=== PATIENT | female | born 1965 | race African-American/Black ===

== ENCOUNTER 2018-11-12 06:04 | Inpatient (IN) | payer BC ==
[2018-11-11 09:36] VITALS: BMI 24.6
[2018-11-12] VITALS (27 sets, daily range): BP systolic 119–140; BP diastolic 54–81; PULSE 64–89; RESP 11–20; Ht 162.6 cm; Wt 63.8 kg
[~2018-11-12] VITALS: Ht 162.6 cm; Wt 63.8 kg
[~2018-11-12 06:04] MED LIST: AMLO2.5T2 PO
[2018-11-12] MEDS ORDERED: DESFLURANE 15 MIN ONE (07:00)
[2018-11-12] MEDS ORDERED: CEFAZOLIN 2 GM/50 ML (PMX) 50 ML IVPB ONE (07:00)
[2018-11-12] MEDS ORDERED: NEOSTIGMINE 10 MG INJ ONE (07:00)
--- NOTE | 2018-11-12 07:17 | HPN ---
Date/Time of Note Date/Time of Note DATE: 11/12/18 TIME: 07:17 Interval H&P Admission Note Pt. seen H&P reviewed: No system changes RAY BALTAZAR MD Nov 12, 2018 07:17
--- NOTE | 2018-11-12 07:39 | PREAC ---
Date/Time of Note Date/Time of Note DATE: 11/12/18 TIME: 07:37 Anesthesia Eval and Record Evaluation Time Pre-Procedure Interview DATE: 11/12/18 TIME: 07:37 Age 53 Sex female NPO: 8 hrs Preoperative diagnosis uterine fibroids Planned procedure abdominal suracervical hysterectomy Past Medical History Past Medical History: Includes Cardio: HTN, CAD (angina) Psych: Depression, Anxiety Surgery & Anesthesia Issues No known issue Meds Anticoagulation: No Beta Alida within 24 hr: No Reason Beta Alida not given: Pt. not on B-Alida Reported Medications Amlodipine Besylate* (Norvasc*) 2.5 Mg Tablet, 2.5 MG PO DAILY 09/14/14 Current Medications Lactated Ringer's 1,000 ml @ 125 mls/hr Q8H IV* ; Start 11/12/18 at 07:00 Meds reviewed: Yes Allergies Coded Allergies: guaifenesin (Verified Allergy, Intermediate, FACIAL SWELLING, 11/12/18) doxycycline (Verified Allergy, Mild, RASH, 11/12/18) Allergies Reviewed: Yes Labs/Studies Labs Reviewed: Reviewed by anesthesiologist Blood Bank Test 11/12/18 06:02 Blood Product Summary Counts Blood Type B POSITIVE test: Negative Studies: ECG (nl), CXR (nl) Pre-procedure Exam Last vitals Vital Signs Date Temp Pulse Resp B/P (MAP) Pulse Ox O2 O2 Flow FiO2 Time Delivery Rate 11/12/18 98.8 76 18 137/78 100 Room Air 06:39 (97) Airway: Adequate mouth opening, Adequate thyromental dist Mallampati: Mallampati II Teeth: Normal Lung: Normal Heart: Normal ASA Physical Status ASA physical status: 3 Emergency: None Planned Anesthetic General/MAC: ETT Neuraxial: Spinal Planned Pain Management Sub-arachniod narcotics, Parenteral pain med Pre-operative Attestations Prior to commencing anesthesia and surgery, the patient was re-evaluated, there was verification of: *The patient's identity *The results of appropriate recent lab work and preoperative vital signs *The above evaluation not changing prior to induction *Anesthetic plan, risk benefits, alternative and complications discussed with patient/family; questions answered; patient/family understands, accepts and wishes to proceed. Davian Julian M.D. Nov 12, 2018 07:39
[2018-11-12] MEDS ORDERED: ROCURONIUM 50 MG INJ ONE (07:41)
[2018-11-12] MEDS ORDERED: GLYCOPYRROLATE 0.4 MG INJ ONE (07:41)
[2018-11-12] MEDS ORDERED: CEFAZOLIN 1 GM INJ ONE (07:41)
[2018-11-12] MEDS ORDERED: PROPOFOL 20 ML ONE (07:41)
[2018-11-12] MEDS ORDERED: FENTAnyl 50 MCG/ML VIAL ONE (07:43)
[2018-11-12] MEDS ORDERED: MIDAZOLAM 1 MG/ML 2 ML INJ ONE (07:43)
[2018-11-12] MEDS ORDERED: DEXAMETHASONE 4 MG/ML 5 ML INJ ONE (07:44)
[2018-11-12] MEDS ORDERED: ONDANSETRON 4 MG INJ ONE (07:44)
[2018-11-12] MEDS ORDERED: morphine SULFATE/PF (10 MG/10 ML) INJ ONE (07:49)
[2018-11-12] MEDS ORDERED: OXYCODONE/ACETAMINOPHEN (5/325) TAB PO PRN ×2 (08:30)
[2018-11-12] MEDS ORDERED: MIDAZOLAM 1 MG/ML 2 ML INJ IV PRN (08:30)
[2018-11-12] MEDS ORDERED: DIPHENHYDRAMINE 50 MG INJ IV PRN ×2 (08:30)
[2018-11-12] MEDS ORDERED: NALBUPHINE HCL (10 MG/1 ML) INJ IV PRN (08:30)
[2018-11-12] MEDS ORDERED: MEPERIDINE 25 MG INJ IV PRN (08:30)
[2018-11-12] MEDS ORDERED: ONDANSETRON 4 MG INJ IV PRN (08:30)
[2018-11-12] MEDS ORDERED: TRIMETHOBENZAMIDE 100 MG/ML VIAL IM PRN ×2 (08:30)
[2018-11-12] MEDS ORDERED: ZOLPIDEM 5 MG TAB PO PRN (08:30)
[2018-11-12] MEDS ORDERED: LABETALOL HCL 20MG INJ IV PRN (08:30)
[2018-11-12] MEDS ORDERED: hydrALAzine 20 MG INJ IV PRN (08:30)
[2018-11-12] MEDS ORDERED: EPHEDrine SULFATE 50 MG/5 ML SYG IV PRN (08:30)
[2018-11-12] MEDS ORDERED: IPRATROPIUM (NEB) 0.5 MG/2.5 ML AMP HHN PRN (08:30)
[2018-11-12] MEDS ORDERED: NALOXONE (0.4 MG/ML) INJ IV PRN (08:30)
[2018-11-12] MEDS ORDERED: HYDROmorphONE 1 MG/5 ML IV SYRINGE IV PRN ×3 (08:30)
[2018-11-12] MEDS ORDERED: morphine 2 MG INJ IV PRN (08:30)
[2018-11-12] MEDS ORDERED: ALBUTEROL 0.083% (NEB) 2.5 MG/3 ML AMP HHN PRN (08:30)
[2018-11-12] MEDS ORDERED: FENTAnyl 50 MCG/ML VIAL IV PRN ×3 (08:30)
--- NOTE | 2018-11-12 09:59 | SIPON ---
Date/Time of Note Date/Time of Note DATE: 11/12/18 TIME: 09:55 Operative Report Preoperative Diagnosis uterine leiomyomata hx of multiple myomectomy Postoperative Diagnosis same as above severe pelvic adhesion Operation/Procedure Performed lysis of adhesion subtotal hysterectomy bilateral salphingo oophorectomy Surgeon see signature line food and nutrition services assistant reiche Anesthesia: general, spinal Estimated blood loss: 100 - 150 ml's Transfusion Required none Specimen uterus both ovaries and tubes Grafts/Implants none Complications none RAY BALTAZAR MD Nov 12, 2018 09:59
--- NOTE | 2018-11-12 10:57 | PAC ---
Date/Time of Note Date/Time of Note DATE: 11/12/18 TIME: 10:57 Post-Anesthesia Notes Post-Anesthesia Note Last documented vital signs Vital Signs Date Temp Pulse Resp B/P (MAP) Pulse Ox O2 O2 Flow FiO2 Time Delivery Rate 11/12/18 72 14 127/63 97 Room Air 10:41 (84) 11/12/18 98.2 10:08 Activity: WNL Respiratory function: WNL Cardiovascular function: WNL Mental status: Baseline Pain reasonably controlled: Yes Hydration appropriate: Yes Nausea/Vomiting absent: Yes Davian Julian M.D. Nov 12, 2018 10:57
[2018-11-12] MEDS: LACTATED RINGER'S 1,000 ML IV* SCH ×2 (11:32→15:00)
[2018-11-12] MEDS: KETOROLAC 30 MG INJ IV PRN ×2 (11:36→20:47)
[2018-11-12] MEDS: ONDANSETRON 4 MG INJ IV PRN ×2 (12:32→20:47)
[2018-11-13 00:09] VITALS: BP 142/66; PULSE 75; RESP 18
[2018-11-13] MEDS: morphine 2 MG INJ IV PRN ×2 (00:23→07:33)
[2018-11-13] MEDS: LACTATED RINGER'S 1,000 ML IV* SCH ×4 (02:41→18:53)
[2018-11-13 04:35] VITALS: BP 123/70; PULSE 81; RESP 18
[2018-11-13 07:25] VITALS: BP 153/79; PULSE 74; RESP 18
[2018-11-13] MEDS: ONDANSETRON 4 MG INJ IV PRN (07:33)
[2018-11-13] MEDS ORDERED: ONDANSETRON 4 MG INJ IV PRN (08:30)
[2018-11-13] MEDS ORDERED: morphine 4 MG/ML VIAL IV PRN (08:30)
[2018-11-13] MEDS: IBUPROFEN 800 MG TAB PO SCH ×2 (14:07→22:00)
[2018-11-13 15:04] VITALS: BP 133/72; PULSE 77; RESP 17
[2018-11-13] MEDS ORDERED: HYDROCODONE/APAP (5/325) TAB PO PRN (15:30)
[2018-11-13] MEDS: HYDROCODONE/APAP (5/325) TAB PO PRN ×2 (15:50→19:42)
[2018-11-13 19:10] VITALS: BP 142/79; PULSE 74; RESP 20
--- NOTE | 2018-11-13 20:42 | QN ---
Documentation Comment no flatus not ambulating max temp 99.5 normotensive abdomen soft wound dry calf neg for tenderness A strable POD #1 P as ordered RAY BALTAZAR MD Nov 13, 2018 20:42
[2018-11-14] MEDS: HYDROCODONE/APAP (5/325) TAB PO PRN ×4 (00:52→19:09)
[2018-11-14 02:00] VITALS: BP 128/65; PULSE 61; RESP 20
[2018-11-14] MEDS: LACTATED RINGER'S 1,000 ML IV* SCH ×3 (03:41→22:05)
[2018-11-14] MEDS: IBUPROFEN 800 MG TAB PO SCH ×3 (06:12→22:04)
[2018-11-14 07:16] VITALS: BP 119/74; PULSE 64; RESP 18
[2018-11-14 14:00] VITALS: BP 140/81; PULSE 64; RESP 17
[2018-11-14 20:00] VITALS: BP 164/94; PULSE 66; RESP 20
--- NOTE | 2018-11-14 20:38 | QN ---
Documentation Comment no flatus yet pain is better controlled VSS afebrile abdomen soft wound dry CVA neg for tenderness calf neg for tenderness A stable post subtotal hyst anad BSO P discharge home tomorrow pm RAY BALTAZAR MD Nov 14, 2018 20:38
[2018-11-15 01:00] VITALS: BP 127/65; PULSE 65; RESP 20
--- NOTE | 2018-11-15 01:10 | OPR ---
DATE OF OPERATION: 11/12/2018 PREOPERATIVE DIAGNOSES: 1. Uterine leiomyomata. 2. History of multiple myomectomy. POSTOPERATIVE DIAGNOSES: 1. Uterine leiomyomata. 2. History of multiple myomectomy. 3. Severe pelvic adhesion. NAME OF OPERATIONS: Lysis of adhesions, subtotal hysterectomy, bilateral salpingo-oophorectomy. SURGEON: Margo Hoskins MD PARACHUTE SUPERVISOR: Mann Dickson MD ANESTHESIOLOGIST: Davian Julian MD ANESTHESIA: Spinal for the postop pain management and general. ESTIMATED BLOOD LOSS: Approximately 100 mL. COUNTS: Final sponge count and instrument count are correct. PROCEDURE IN DETAILS: Under proper induction of spinal anesthesia and then induction of general anes thesia adequately, the patient was placed in the frog position. Vaginal prep was done and Cisneros cath eter was introduced under sterile condition and repositioned to supine. Abdominal wall was prepped a nd draped in usual aseptic manner. A transverse incision was made along the previous incisional scar . Scar tissue was excised. Incision was carried down through the subcutaneous tissue to the anterio r recti fascia which was incised transversely in length of the incision. The fascial flap was create d by blunt and sharp dissection of tendinous attachment upward and downward and 2 rectus muscles were split in the midline and peritoneal cavity was entered. There were some filmy adhesion under the pa rietal peritoneum which was and the uterus was explored which felt to be approximately 16 w eeks of gestational size and surface was extremely irregular and since size of the uterus does not al low the retractor insertion, it was decided to bring the uterus out and do proceed the surgery. At t his point, the uterus was delivered out, but there were multiple adhesions on the back of the uterus, most likely where the previous myomectomy done and the bowel segment along with the fallopian tubes and ovary was stuck to the posterior aspect of the low uterine wall. In order to exteriorize the [place] to start the procedure, this adhesion has to be lysed. Since the bowel segment was included in b undle of adhesion which was gradually from the uterus by using the electric cauterization a nd close to the uterus, so it does not damage the other adjacent organ by multiple lysis of adhesion from the back of the uterus done and successfully all the bowel segment. After the lysis o f adhesion done, bowel was packed away from the operative field and the uterus was completely deliver ed out and exteriorized and both cornua of the uterus was grasped with Pean forceps and the right rou nd ligament was clamped and cut, ligated with #1 chromic catgut and then anterior leaf of the broad l igament was incised inferomedially, thus bringing down the bladder flap and it was noticed there are multiple small fibroids even on the cervix. After bladder flap and the broad ligament was windowed and right fallopian tubes and ovaries which were stuck to the right lateral aspect of the po sterior uterine wall which was included, the infundibulopelvic ligament was doubly clamped and doubly ligated with #1 chromic catgut. Then uterine vessel was clamped and cut and transfixed with #1 salon designer lisa catgut after the further separation of bladder from the low segment of the uterus. In the left s angelina also, the round ligament was clamped, cut and ligated with #1 chromic catgut and the anterior asp ect of the broad ligament was incised inferomedially, thus bladder flap was created on the left side and the bladder was pushed down from the lower portion of the uterus. Because of this, ovary and the fallopian tube was stuck to the posterior aspect of the uterus which was decided to be removed after the separation of the bladder flap, the broad ligament was windowed and the left infundibulopelvic l igament was doubly clamped and cut and doubly ligated with #1 chromic catgut. Then further dissectio n of the bladder was done and the uterine vessel was clamped and cut, ligated with #1 chromic. After both the uterine vessel and upper portion of cardinal ligament was clamped and cut and ligated with #1 chromic catgut, the suture was left long and decided to cut of the fundus of the uterus from the c ervix. ____ to save the cervix in which will be done. After the fundus was removed and the center o f the cervix was cauterized, upper portion of the cervix was closed with #1 chromic catgut in continu ous manner. Bleeder was controlled properly on the cervix and ____ area with the cauterization. Marilyn shandra was size of 16 weeks gestational age and showing multiple intramural and subserosal tumors from 2 to 3 cm to possibly approximately 6 cm in diameter. After the fundus out of field, OC retractor was introduced. Then the upper portion of cardinal ligament was clamped and cut and suture was left eryn ng and the center of the cervix was cauterized. Endocervical canal was cauterized and the rest of th e cervix was closed with #1 chromic catgut in continuous manner. Bleeder was controlled properly and irrigation was done. Posteriorly, serosa of the rectum was checked. There was a denuded area, whic h was covered with Surgicel and followed by Interceed. Another piece of Interceed covered on the cer vix. All bleeder was controlled properly and the OC retractor was removed after lap sponge was remov ed and sponge count was correct. The parietal peritoneum was closed using 0 chromic catgut in contin uous manner. Muscle was closed with 0 chromic catgut in continuous manner. Fascia was closed with # 1 Vicryl in continuous manner in 2 segments. Subcutaneous tissue was irrigated with water. This lay er was approximated with a 2-0 plain in continuous manner after adequate hemostasis was secured. Ski n was closed with a 3-0 Monocryl in subcuticular manner. Steri-Strip was applied. A pressure dressi ng was applied. Estimated blood loss was approximately 100 mL. The patient withstood the procedure and was sent to the recovery room in stable condition. Urine output was approximately 200, which was clear. Dictated By: MARGO GUEVARA/[place] Conf#: [id number] DID#: [id number]
[2018-11-15] MEDS: HYDROCODONE/APAP (5/325) TAB PO PRN ×4 (05:46→18:01)
[2018-11-15] MEDS: LACTATED RINGER'S 1,000 ML IV* SCH ×2 (05:47→13:46)
[2018-11-15] MEDS: IBUPROFEN 800 MG TAB PO SCH ×2 (06:52→14:55)
[2018-11-15 07:59] VITALS: BP 130/71; PULSE 66; RESP 18
[2018-11-15 13:49] VITALS: BP 151/72; PULSE 70; RESP 18
--- NOTE | 2018-11-15 15:37 | DS ---
Date/Time of Note Date/Time of Note DATE: 11/15/18 TIME: 15:31 Discharge Summary Admission/Discharge Info Admit Date/Time Nov 12, 2018 at 06:04 Discharge Date/Time nov at 1700 Discharge Diagnosis uterine fibroid and pelvic adhesion Patient Condition: Stable Consults n/a Procedures subtotal hysterectomy and bilateral salphingooophorectomy Hx of Present Illness 54y.o nulligravida underwent subtotal hyst and BSO on 11/12/18 postoperatively had unevenful course no bowel movement yet pain control adequate with motrin and norco tolerating diet well and ambulating ok f/u in 2weeks at office Hospital Course same as above Home Meds Reported Medications Amlodipine Besylate* (Norvasc*) 2.5 Mg Tablet, 2.5 MG PO DAILY 09/14/14 Follow-up Plan 2weeks Primary Care Provider Not On Staff Doctor Time spent on discharge: < 30 minutes Pending Labs Laboratory Tests Test 11/14/18 17:20 Urine Color STRAW (YELLOW) Urine Clarity CLEAR (CLEAR) Urine pH 8.0 (5.0-9.0) Urine Specific [place] 1.005 (1.003-1.030) Urine Ketones TRACE mg/dL (NEGATIVE) Urine Nitrite NEGATIVE mg/dL (NEGATIVE) Urine Bilirubin NEGATIVE mg/dL (NEGATIVE) Urine Urobilinogen NEGATIVE mg/dL (NEGATIVE) Urine Leukocyte Esterase TRACE Magi/ul (NEGATIVE) Urine Microscopic RBC 1 /HPF (0-5) Urine Microscopic WBC 1 /HPF (0-5) Urine Hemoglobin NEGATIVE mg/dL (NEGATIVE) Urine Glucose NEGATIVE mg/dL (NEGATIVE) Urine Total Protein NEGATIVE mg/dl (NEGATIVE) Microbiology Date/Time Source Procedure Growth Status 11/14/18 17:20 Cisneros Catheter Urine Culture - Preliminary NO GROWTH Resulted AFTER 24 HOURS RAY BALTAZAR MD Nov 15, 2018 15:37
--- NOTE | 2018-11-15 15:38 | PD.PPDC ---
FAMILY PRACTICE NURSE PRACTITIONER Discharge Instruction Diagnosis [id number] Final Diagnosis: Ikjik3l s/p subtotal hysterectomy and BSO Condition [id number] Patient Condition: [id number] Stable Diet [id number] Diet: Eydpo4h Resume Regular Diet Activity/Restrictions [id number] Activity: Fcvza2a May Shower Pdalf2Gs Restrictions: Otbgp8g No Exercising Minimize Stair-climbing No Sexual Activity Nothing in the Vagina No [place] No Tampons, douche Wound/Drain Care Instructions [id number] Wound/Drain Care [id number] Remove Steri Strips in 2 Instructions: weeks Wash with soap and water Keep clean and dry Follow-up Follow-up with Physician: 2, Week/Weeks Return to clinic for [id number] BELT LINE FEEDER Instructions: [id number] Fever greater than 101 Chills Worsening abdominal pain Excessive Vaginal Bleeding More than 2 pads per hour Unable to tolerate diet [id number] Surgical Instructions: [id number] Incisional Drainage Incisional Redness RAY BALTAZAR MD Nov 15, 2018 15:38
== END 2018-11-15 18:24 | disposition home or self-care (01) | DRG 743 ==
LOC: REC 06:04 → MS1 10:42
PROVIDERS: ADMIT Obstetrics & Gynecology; ATTEND Obstetrics & Gynecology
PROC: 0UT20ZZ Resection of Bilateral Ovaries, Open Approach (ICD-10-PCS; 2018-11-12)
PROC: 0UT70ZZ Resection of Bilateral Fallopian Tubes, Open Approach (ICD-10-PCS; 2018-11-12)
PROC: 0UN70ZZ Release Bilateral Fallopian Tubes, Open Approach (ICD-10-PCS; 2018-11-12)
PROC: 0UN90ZZ Release Uterus, Open Approach (ICD-10-PCS; 2018-11-12)
PROC: 0UN20ZZ Release Bilateral Ovaries, Open Approach (ICD-10-PCS; 2018-11-12)
PROC: 0UT90ZL Resection of Uterus, Supracervical, Open Approach (ICD-10-PCS; principal; 2018-11-12 07:30)
DX: D25.1 Intramural leiomyoma of uterus (principal); D25.2 Subserosal leiomyoma of uterus; N73.6 Female pelvic peritoneal adhesions (postinfective); I10 Essential (primary) hypertension; I25.119 Atherosclerotic heart disease of native coronary artery with unspecified angina pectoris; F32.9 Major depressive disorder, single episode, unspecified; F41.9 Anxiety disorder, unspecified
CPT/HCPCS: 80053; 81001; 85025; 86850; 86900; 86901; 86920; 87086; 88305; J0690; J1100; J1885; J2250; J2270; J2274; J2405; J2710; J3010; J7120